=== PATIENT | male | born 1995 | race Caucasian/White ===

== ENCOUNTER 2017-03-05 10:13 | Emergency (ER) | payer SELFPAY ==
[~2017-03-05] VITALS: Ht 167.6 cm; Wt 60.8 kg
[2017-03-05 10:16] VITALS: BP 131/82
--- NOTE | 2017-03-05 11:15 | NUR ---
PATIENT TO BED 3 AT THIS TIME.
--- NOTE | 2017-03-05 11:30 | NUR ---
21/M BIB MOM FOR right injury pain during soccer game x 2WK AGO. Swelling NOTED TO AREA. DIFFICULTY ROM R/T PAIN. DENIES PMH. DENIES MEDS FOR PAIN. CAP REFILL INTACT. ER MD MADE AWARE. XR AWARE.
--- NOTE | 2017-03-05 11:45 | NUR ---
Patient being evaluated by physician at bedside.
--- NOTE | 2017-03-05 12:00 | NUR ---
SPLINT WITH CRUTCH TRAINING GIVEN TO PT. PT UNDERSTOOD TEACHING GIVEN WITH RETURN DEMONSTRATION.
--- NOTE | 2017-03-05 12:30 | NUR ---
Patient discharged with v/s stable. Written and verbal after care instructions given and explained. Patient alert, oriented and verbalized understanding of instructions. Ambulatory with CRUTCHES NOTED. All questions addressed prior to discharge. ID band removed. Patient advised to follow up with PMD. Opportunity to ask questions provided and answered.
[2017-03-05 12:46] VITALS: BP 129/80
== END 2017-03-05 12:30 | disposition home or self-care (01) ==
LOC: MED 10:13
DX: S93.401A Sprain of unspecified ligament of right ankle, initial encounter (principal); X58.XXXA Exposure to other specified factors, initial encounter; Y93.66 Activity, soccer; Y92.89 Other specified places as the place of occurrence of the external cause; Y99.8 Other external cause status
CPT/HCPCS: 73610; 99284